=== PATIENT | female | born 1975 | race Two or more races ===

== ENCOUNTER → 2016-07-17 | Outpatient (CLI) | payer BC, OTHER ==
--- NOTE | 2016-07-17 08:47 | MR ---
EXAMINATION TYPE: MR lumbar spine wo con DATE OF EXAM: 07/17/2016 7:23 AM COMPARISON: 10/27/2014 HISTORY: 40 year-old female with low back pain TECHNIQUE: Multiplanar, multisequence images of the lumbar spine were acquired. Findings: Vertebral body heights are preserved and alignment is maintained. Conus medullaris is normal. No suspicious bone marrow replacement. There is a component of mild congenital spinal canal narrowing in the mid to lower lumbar spine with AP canal dimension of 1.1 cm. However, there is redemonstrated degenerative disc disease primarily centered at L5-S1 Graham mild disc height loss progressed from prior exam. A large right paracentral disc extrusion has also increased in size not contributing to a moderate to severe spinal canal stenosis and impingement of the james ing right S1 nerve root. Moderate right L5-S1 neural foraminal stenosis is unchanged. There is new central, left paracentral disc extrusion with superior migration of disc material, sagit peterson image 6 and axial image 5. This appears to impinge the traversing left S1 nerve root canal. No prevertebral or paravertebral soft tissue abnormality. IMPRESSION: 1. Redemonstrated degenerative disc disease primarily at L5-S1. Degenerative changes have progressed now with enlarging right paracentral disc extrusion and increasing impingement of the traversing righ t S1 nerve root and similar moderate right neural foraminal stenosis. 2. Progressive disc bulge and a new extruded left paracentral disc fragment at this level as well. Th is appears to impinge the traversing left S1 nerve root now as well. 3. These progressive changes cause moderate to severe narrowing of the spinal canal at the L5-S1 leve l. 4. Background of mild congenital canal stenosis.
== END | disposition home or self-care (01) ==
LOC: RADMRIMAIN 06:44
PROVIDERS: ATTEND Orthopaedic Surgery Orthopaedic Surgery of the Spine
DX: M48.06 Spinal stenosis, lumbar region (principal); M99.73 Connective tissue and disc stenosis of intervertebral foramina of lumbar region; M51.27 Other intervertebral disc displacement, lumbosacral region; M51.37 Other intervertebral disc degeneration, lumbosacral region; M47.816 Spondylosis without myelopathy or radiculopathy, lumbar region
CPT/HCPCS: 72148

== ENCOUNTER → 2018-04-19 | Outpatient (CLI) | payer BC ==
[2018-04-19 09:58] LABS: Basophils # (A) 0.1 k/uL (0-0.2); Basophils % (A) 1 %; Eosinophils % (A) 1 %; HCT 40.2 % (34.0-46.0); HGB 13.1 gm/dL (11.4-16.0); Lymphocytes # (A) 1.7 k/uL (1.0-4.8); Lymphocytes % (A) 28 %; MCH 29.2 pg (25.0-35.0); MCHC 32.7 g/dL (31.0-37.0); MCV 89.4 fL (80.0-100.0); Mean Platelet Volume 7.3; Monocytes # (A) 0.3 k/uL (0-1.0); Monocytes % (A) 6 %; Neutrophils # (A) 3.7 k/uL (1.3-7.7); Neutrophils % (A) 63 %; Platelet Count 325 k/uL (150-450); RBC 4.49 m/uL (3.80-5.40); RDW 13.8 % (11.5-15.5); WBC 5.9 k/uL (3.8-10.6)
== END | disposition home or self-care (01) ==
LOC: LABPAT 09:17
PROVIDERS: ATTEND Obstetrics & Gynecology
DX: Z01.812 Encounter for preprocedural laboratory examination (principal)
CPT/HCPCS: 36415; 85025

== ENCOUNTER 2018-04-26 05:50 | Day surgery (SDC) | payer BC, OTHER ==
[2018-04-23 15:41] VITALS: BMI 33.6
--- NOTE | 2018-04-25 07:33 | P.HPOB ---
History of Present Illness H&P Date: 04/25/18 Chief Complaint: High-grade cervical dysplasia This patient is a pleasant 42-year-old 3 para 2 female who was referred to me by Dr. Manriquez for evaluation of a high-grade Pap smear. Patient had a Pap smear done for her yearly exam and it showed high-grade changes. I did a colposcopy on her on February 22 that showed a negative endocervical curettings but both biopsies at 5 and 12:00 showed moderate to severe dysplasia. Patient and I discussed options for treatment and plan at this time is to do a colposcopy with LEEP excision of this area. Past Medical History Past Medical History: GERD/Reflux, Hypertension Additional Past Medical History / Comment(s): MIGRAINES, ENVIRONMENTAL ALLERGIES , HX OF ANEMIA. History of Any Multi-Drug Resistant Organisms: None Reported Past Surgical History: Back Surgery Additional Past Surgical History / Comment(s): D & C. Past Anesthesia/Blood Transfusion Reactions: No Reported Reaction Past Psychological History: Anxiety Smoking Status: Former smoker Past Alcohol Use History: Occasional Additional Past Alcohol Use History / Comment(s): QUIT SMOKING 10 YEARS AGO. SMOKED APPROX 15 YEARS, 1- 1 & 1/2 PPD Past Drug Use History: None Reported - Past Family History Mother Family Medical History: Cancer Additional Family Medical History / Comment(s): FROM LUNG CANCER Medications and Allergies Home Medications Medication Instructions Recorded Confirmed Type Benicar-Hct (Unknown Dose) 1 tab PO DAILY 04/23/18 History Cetirizine HCl/Pseudoephedrine 1 each PO DAILY PRN 04/23/18 04/23/18 History [Zyrtec-D Tablet] Lexapro (Unknown Dose) 1 dose PO DAILY 04/23/18 History Norgestimate-Ethinyl Estradiol 1 each PO DAILY 04/23/18 04/23/18 History [Tri-Sprintec Tablet] Allergies Allergy/AdvReac Type Severity Reaction Status Date / Time No Known Allergies Allergy Verified 04/23/18 15:29 Exam - OBG Physical Exam Abdomen: bowel sounds normal, no diffuse tenderness, no bruit present, no guarding noted, no hepatomegaly, no splenomegaly, no mass Vulva: both: normal Vagina: normal moisture, no discharge Cervix: no lesion (Patient has acetowhite changes most markedly at 5 and 12:00) , no discharge Results Cervical biopsy done on February 22 showed high-grade cervical dysplasia (LANIE-2 to LANIE-3). Assessment and Plan Assessment: This is a pleasant 42-year-old 3 para 2 female with high-grade ectocervical dysplasia of the cervix. Plan is colposcopy with LEEP excision of the ectocervix and endocervix. Patient and I have discussed the surgery in detail including the risks of the surgery which include infection, bleeding, possible cervical incompetence in future loss. All the patient's questions are answered and a written consent is obtained. (1) High grade squamous intraepithelial cervical dysplasia Status: Acute Code(s): R87.613 - HIGH GRADE INTREPITH LESION CYTO SMR CRVX ( HGSIL) SNOMED Code(s): 875676416
[~2018-04-26 05:50] MED LIST: DEXAMETHASONE SOD PHOSPHATE 10 MG/ML 1 ML VIAL IV ONE; LACTATED RINGERS 1,000 ML IV SCH; LIDOCAINE 1% 20 ML VIAL (10MG/ML) FOR IV START INTRADERMA PRN; MIDAZOLAM 2 MG/2 ML VIAL IV PRN; Pre Op ABX Message 1 EACH MISC MISCELLANE ONE; fentaNYL (PF) 50 MCG/ML 2 ML AMP IV PRN
[2018-04-26] MEDS ORDERED: ONDANSETRON 4 MG/2 ML VIAL IVP ONE (06:21)
[2018-04-26] MEDS ORDERED: LACTATED RINGERS 1,000 ML IV ONE ×3 (06:21→07:31)
[2018-04-26] MEDS ORDERED: fentaNYL (PF) 50 MCG/ML 2 ML AMP ONE (06:53)
[2018-04-26] MEDS ORDERED: MIDAZOLAM 2 MG/2 ML VIAL ONE (06:53)
[2018-04-26] MEDS ORDERED: LIDOCAINE 1% INJ 10MG/ML (20 ML MDV) ONE (06:53)
[2018-04-26] MEDS ORDERED: PROPOFOL 10 MG/ML 20 ML VIAL IV ONE (06:53)
[2018-04-26] MEDS ORDERED: KETOROLAC 30 MG/ML 1 ML VIAL ONE (06:53)
[2018-04-26] MEDS ORDERED: FERRIC SUBSULFATE (MONSELS) JAR TOPICAL ONE (07:07)
--- NOTE | 2018-04-26 07:31 | P.OP ---
Date of Procedure: 04/26/18 Preoperative Diagnosis: High-grade ectocervical dysplasia Postoperative Diagnosis: Same Procedure(s) Performed: Colposcopy with LEEP excision of the ectocervix endocervix Anesthesia: other (LMA) Surgeon: Jean Mart Estimated Blood Loss (ml): 50 Urine output (ml): 50 Pathology: other (Ectocervix and endocervix) Condition: stable Disposition: PACU Indications for Procedure: Please see dictated H&P for intimate details of this patient's admission. Brief summary this is a pleasant 42-year-old multiparous patient who is referred to me for evaluation of a high-grade abnormal Pap smear. Patient a colposcopy performed which showed high-grade cervical dysplasia at 5 and 12:00. Patient I discussed options for treatment she now presents for LEEP excision of this area. Patient understands this surgery and risks including risks of infection, bleeding, possible cervical incompetence if she were to have another baby. All the patient's questions are answered written consent is obtained. Operative Findings: This patient had a large nonstaining Lugol's area of the ectocervix consistent with the office findings of high-grade dysplasia Description of Procedure: This patient is taken to the operating room where she is laid in the supine position. She subsequently goes general anesthesia without incident. With an adequate level of anesthesia she's placed in the dorsal lithotomy position. She has a vaginal perineal prep and drape. This time I drain her bladder for 50 mL of clear urine. The laser's speculum was placed into the vagina. Colposcopy is then performed in the area of abnormality is demarcated. This is a quite large area that encompasses a lot of the ectocervix. Using a large LEEP loop set at 60/70 cutting cautery setting I removed the ectocervical lesion in 3 passes. With this done I then take a small LEEP loop and remove the endocervical portion. These are sent separately to pathology. Using Bovie cautery I then cauterized the entire ectocervical margin and ectocervical bed. Excellent hemostasis is noted. Monsel solution is applied for added hemostasis at this time. This time the procedure is ended. The counts are correct 3. There are no complications. Patient is awakened from anesthesia and taken the recovery room in satisfactory condition.
[2018-04-26 07:38] VITALS: RESP 16; TEMP 98.2
[2018-04-26 08:34] VITALS: BP 131/88; PULSE 71
== END 2018-04-26 08:43 | disposition home or self-care (01) ==
LOC: OR 05:50
PROVIDERS: ATTEND Obstetrics & Gynecology
DX: D06.1 Carcinoma in situ of exocervix (principal); K21.9 Gastro-esophageal reflux disease without esophagitis; I10 Essential (primary) hypertension; Z87.891 Personal history of nicotine dependence; F41.9 Anxiety disorder, unspecified; Z80.1 Family history of malignant neoplasm of trachea, bronchus and lung; Z79.3 Long term (current) use of hormonal contraceptives; Z79.899 Other long term (current) drug therapy
CPT/HCPCS: 81025; 88305; 88307; 57460; 58110; J2250; J1100; J2405; J2001; J3010; J1885; J2704

== ENCOUNTER → 2021-09-15 | Outpatient (CLI) | payer BC ==
--- NOTE | 2021-09-15 10:37 | MR ---
EXAMINATION TYPE: MR lumbar spine wo con DATE OF EXAM: 09/15/2021 COMPARISON: 07/17/2016 HISTORY: Low back pain for 3 months. History of surgery. TECHNIQUE: T1 and T2 axial and sagittal images of the lumbar spine are submitted. FINDINGS: Exam is limited by motion artifact. There is no abnormal signal seen within the visualized spinal cord or paraspinal soft tissues. Incidental note made of degenerative disc disease T11-T12 with central disc bulge not included on axi al imaging. Simple appearing right renal cyst noted. At L1-2 there is no evidence of disc herniation or canal stenosis. No foraminal encroachment. At L2-3 there is no evidence of degenerative disc disease, disc herniation or canal stenosis. No fora yolie encroachment At L3-4 there is hypertrophic change of the facets. No disc herniation or canal stenosis. No foramina l encroachment At L4-5 there is facet arthropathy with ligamentum flavum hypertrophy. No disc herniation. Mild circu mferential disc bulging greater laterally to the left mild left-sided foraminal encroachment. Finding s stable. At L5-S1 there is severe degenerative disc disease with grade 1 anterolisthesis and discogenic marrow changes. Moderate to severe bilateral foraminal protrusion greater on the right with facet arthropat hy and ligamentum flavum projecting. Tarlov cyst S2 level. Previously noted large disc herniation not well-seen on today's seen. Hypertrophic changes result in canal stenosis IMPRESSION: 1. Severe degenerative disc disease L5-S1 with grade 1 anterolisthesis, advanced facet arthropathy an d ligamentum flavum hypertrophy contribute to moderate canal stenosis and moderate to severe bilatera l foraminal encroachment. Large disc herniation with extrusion previously noted is not seen on today' s exam and compatible with the patient's history of previous surgery. Correlate clinically to confirm surgery. There remains broad-based disc bulging centrally. 2. There is disc bulging greater laterally at the left L4-L5 with mild left foraminal encroachment si milar to prior exam. 3. T11-T12 there is a central disc bulge not included on axial imaging.
== END | disposition home or self-care (01) ==
LOC: RADMRIMAIN 09:39
PROVIDERS: ATTEND Orthopaedic Surgery
DX: M48.061 Spinal stenosis, lumbar region without neurogenic claudication (principal); M47.819 Spondylosis without myelopathy or radiculopathy, site unspecified; M43.17 Spondylolisthesis, lumbosacral region; M51.37 Other intervertebral disc degeneration, lumbosacral region
CPT/HCPCS: 72148

== ENCOUNTER → 2022-03-06 | Outpatient (CLI) | payer BC | END | disposition home or self-care (01) | LOC: LABPAT 09:00 | PROVIDERS: ATTEND Orthopaedic Surgery | DX: Z53.9 Procedure and treatment not carried out, unspecified reason (principal) ==

== ENCOUNTER 2022-03-14 05:43 | Inpatient (IN) | payer BC ==
[2022-03-07 14:21] VITALS: BMI 38.9
[~2022-03-14 05:43] MED LIST changes: +ACETAMINOPHEN TAB 500 MG TAB PO PRN; -DEXAMETHASONE SOD PHOSPHATE 10 MG/ML 1 ML VIAL IV ONE; +GABAPENTIN 300 MG CAP PO PRN; -LACTATED RINGERS 1,000 ML IV SCH; -LIDOCAINE 1% 20 ML VIAL (10MG/ML) FOR IV START INTRADERMA PRN; -MIDAZOLAM 2 MG/2 ML VIAL IV PRN; +ONDANSETRON 4 MG/2 ML VIAL IVP PRN; -Pre Op ABX Message 1 EACH MISC MISCELLANE ONE; +TRANEXAMIC ACID IN NACL,ISO-OS 1,000 MG in SALINE 1 100ML.BAG IVPB PRN; -fentaNYL (PF) 50 MCG/ML 2 ML AMP IV PRN
[2022-03-14] MEDS ORDERED: DEXAMETHASONE SOD PHOSPHATE 4 MG/ML 1 ML VIAL IV ONE (06:15)
[2022-03-14] MEDS ORDERED: ONDANSETRON 4 MG/2 ML VIAL IVP ONE (06:15)
--- NOTE | 2022-03-14 06:25 | P.HPOR ---
History of Present Illness H&P Date: 03/06/22 .T:Title: [facility] History and Physical Date of :[birth year] Age: 46 year Height: 5'3" Weight: 213 lbs BMI: 37.73 kg/m2 Occupation: Office Work VAS: 3 [employer] MPLAINT: Lumbar pain DOI:Chronic DOS: None recent, hx of laminectomy [place] [address] Gilmore Duration of current treatment regiment: 3 months HISTORY: Xrays No new xrays taken in office Trauma or injury No Work-Related No Pain description aching, increasing . Location posterior diffuse Patient notes that their pain radiates to bilateral lower extremities Activity Modification No Hand Dominance right TREATMENTS COMPLETED: 6 weeks of PT completed? Month and Year of last PT date? 2021 Yes How many sessions? 12 Did it help? No Physician recommended home exercise completed? Duration of HEP course: Current yes Patient has trialed the physician directed home exercise program for without relief of their symptoms. Medications yes List: Motrin, Tylenol, Gabapentin with mild relief. Tizanidine without relief. Alternative interventions Chiropractic: No Massage therapy: No R.I.C.E: yes , without relief Brace: No Injections No RFA: yes , TOMA in 2017, with relief for 1 month SUBJECTIVE: Ms. Preston returns to the office for a pre-operative recheck of their low back pain and planned L5-S1 MIS TLIF. Patient reports her symptoms are about the same as they were at the time of her last appointment. Patient continues to complain of low back pain radiating into the bilateral lower extremities (right side worse than left) with numbness and tingling through the L4-L5 dermatomal distribution. Overall the patient has seen a progressive increase in symptoms since their onset. Ms. Preston symptoms are exacerbated with prolonged standing, ambulation, twisting, and high impact movements like walking up and down stairs, due to this they notes that it is increasingly difficult for Ms. Preston to comp lete many of their daily tasks. Patient is having severe sleep disturbances as well due to their ongoing pain and associated symptoms. Regarding treatments, the patient has previously trialed all abovementioned conservative treatment modalities without relief of her symptoms. Patient denies trialing any other modalities at this time. Otherwise the patient denies any f/c/sob/cp, no incision concerns, no bladder or bowel retention/incontinence, no perineal numbness/tingling, and ambulates independently. History Ms. Preston last returned to the office on 12/21/2021 for a recheck of their low back pain. Of note the patient has seen Katherine Valentin N.P regarding this issue and this is her first time seeing myself regarding this issue. Patient reports a posterior lumbar pain ongoing for several years with no known injury or trauma to indicate an exact onset of their symptoms. Of note the patient does have a history of a laminectomy with microdiskectomy done in 2017. In addition to their lumbar pain, they do report that it radiates into the bilateral lower extremities, associated with somewhat transient numbness and tingling through the legs diffusely. Overall the patient has seen a progressive increase in symptoms since their onset. Ms. Preston symptoms are exacerbated with prolonged standing and ambulation, due to this they notes that it is increasingly difficult for Ms. Preston to complete many of their daily tasks. Patient is having severe sleep disturbances as well due to their ongoing pain and associated symptoms. Regarding treatments, the patient has previously trialed all abovementioned treatment modalities without relief of her symptoms. Patient denies trialing any other modalities at this time. For their symptoms, the patient has been taking Motrin,Tylenol, and Gabapentin with mild relief. She has trialed Tizanidine without relief in the past. Otherwise the patient denies any f/c/sob/cp, no incision concerns, no bladder or bowel retention/incontinence, no perineal numbness/tingling, and ambulates independently. Ms. Preston was last seen on 10/18/2021 regarding low back pain. Patient has completed 6 weeks of physical therapy with no relief. Patient states that she has no changes in her symptoms, continues to have low back pain with numbness and tingling into bilateral lower extremities. Patient did have her MRI of the lumber spine performed on 09/15/2021. At last visit patient was prescribed gabapentin 300 mg and Motrin 800 mg, which she states is providing some relief. She denies any loss of bowel or bladder, perineal or groin numbness or pain. She is ambulatory independently. Today 08/17/2021 Ms. Preston presents to the office for lumbar pain that has worsened over the past 2 months. Patient has had chronic lumbar pain for 7 years, in 2017 she had a laminectomy done by Dr. Gilmore. Patient states that pain increases with prolonged walking, standing, and sitting. She has numbness and tingling that radiates into bilateral lower extremities, she does state that the left side is worse. She is currently taking [id number] Motrin with no relief. She denies any incontinence of bowel or bladder. Patient is independently. The patients' past social, medical, family, surgical history, as well as review of systems, have been reviewed. Please refer to the Neurosurgery History and Physical form that has been scanned in to our electronic medical record system. 16 points review of systems completed and as stated in HPI, all other systems reviewed are negative. Social History: Reviewed, see appropriate section of the chart for details. P3 Social History: Smoking: none P3 Alcohol: currently drinks alcohol P3 Family History: Reviewed, see appropriate section of the chart for details. P2 Past Medical History: Reviewed, see appropriate section of the chart for details. A2Kabotbo Medications: Rx: candesartan 16 mg-hydrochlorothiazide 12.5 mg tablet Ref: 0 Rx: norgestimate-ethinyl estradioL 0.18 mg/0.215mg/0.25mg-35 mcg(28)tablet Ref: 0 Rx: gabapentin 300 mg capsule Ref: 0 Rx: tiZANidine 2 mg tablet Ref: 0 Rx: ibuprofen 800 mg tablet Ref: 0 Rx: TylenoL Ref: 0 PHYSICAL EXAMINATION: General: Awake, alert, appropriate for age, in no acute distress. HEENT: No unusual neck masses around region of lateral neck triangle, thyroid, supraclavicular groove Heart: Regular rate and rhythm, normal S1, S2 and no murmur/gallop. Lungs: Clear to auscultation bilaterally with no use of accessory muscles. Extremities: Skin warm and dry without acute lesions, coloration, temperature, skin intact, no tenderness or erythema Integument: Hairy patches: Absent Dorsal skin dimples: Absent Cafe au lait spots: Absent Surgical incisions: No Palpation: Please see Pain drawing on Intake sheet for further detail. Midline spinal tenderness: No E6 Paralumbar tenderness: YeE6s Parathoracic tenderness: No E6 Buttocks tenderness: No E6 Special findings: No POSTURAL and MUSCULO-SKELETAL EVALUATION: Coronal Balance: NEUTRAL Recumbent testing: Patient is able to lay flat on back Sagittal Balance: NEUTRAL Shoulder Profile: LEVEL Pelvic Girdle: LEVEL Neck ROM: UNRESTRICTED Lumbar ROM: RESTRICTED Shoulder ROM: Symmetrical Hip ROM: Symmetrical Knee ROM: Symmetrical Hands: Normal appearance, symmetrical Feet: Normal appearance, Symmetrical VASCULAR STATUS : LEFT RIGHT Wrist Pulses INTACT INTACT Pedal Pulses (Dors. pedis & post.tibialis) INTACT INTACT Color NORMAL NORMAL Edema Absent Absent NEUROLOGIC EXAMINATION: Mental Status:Awake and alert, fully oriented, with normal attention, concentration and memory, and fluent, appropriate speech. Cranial Nerves: I: Olfactory not tested. II: Visual acuity normal, no visual field deficit noted with confrontation. III,IV: Normal pupillary reflexes & intact extraocular movements without nystagmus. V,: Intact symmetrical facial sensation. VII: Intact symmetrical facial motor movement VIII: Hearing intact. IX,X: Intact gag, swallow, & normal voice. XI: Sternocleidomastoid, trapezius function intact. XII: Tongue midline with normal movements. L'hermitte's Sign: Negative / absent Spurling'Sign: Absent bilaterally. Cubital percussion test: Absent bilaterally. Pulliam-Tinel sign - Carpal region: Absent bilaterally. Straight Leg Raising: Absent bilaterally. Crossed straight leg raise: negative O8 MOTOR EXAM (0-5/5, N/T) STRENGTH RIGHT LEFT Shoulder Abd (not part of the ROSETTE score) 5 5 Elbow Flexors 5 5 Elbow Extensor 5 5 Wrist Dorsiflexors 5 5 Finger Abductor 5 5 Roastmaster 5 5 Hip Flexor (Not part of ROSETTE Motor score) 5 5 Knee Flexor 5 5 Knee Extensor 5 5 Ankle dorsiflexor 4 4 Ankle plantarflexion 4 4 Extensor hallucis 5 5 REFLEXES(0-4/2, NT) RIGHT LEFT Upper Extremities 2 2 Lower Extremities 2 2 Pathological Reflexes RIGHT LEFT Pulliam's Absent Absent Clonus Absent Absent Babinski Absent Absent # Indicates mechanical impairment Muscle appearance:Symmetrical, without signs of atrophy or dystrophy. Sensory system (0-4, N/T) Test type RU CURT RL LL Joint-Position 2 2 2 2 Vibration 2 2 2 2 Pain & LT sense 2 2 2 2 Dermatomal Deficit: None None L4-L5 L4-L5 Gait and Functional Evaluation: Ambulatory aids: Independent Romberg's test: Intact bilaterally Toe heel walk / heel-toe walk intact while maintaining satisfactory balance? yes Squatting/straightening w/o assistance to a min of 60 degree knee flexion? yes Single leg stance: intact Hand and finger dexterity intact bilaterally? yes Disdiadochokinesis examination negative bilaterally? yes RADIOGRAPHIC STUDIES: XRay (5 views) taken on 08/17/21 obtained at [facility] of Lumbar Spine and Pelvis: images demonstrate a grade 1 and grade 2 L5-S1 spondylolisthesis with exuberant facet hypertrophy as well as part elongation. There is near complete collapse of the L5-S1 disc. There are no fractures or other dislocations noted. There is some anterior bridging osteophyte that is starting to form over L5-S1. The remaining disks and vertebral body heights are of normal size and shape. Overall alignment is otherwise maintained despite the slip. AP pelvis demonstrates a congruent level pelvis without fracture MRI scan from obtained at [facility] of Lumbar Spine: IMPRESSION: 1. Severe degenerative disc disease L5-S1 with grade 1-2 anterolisthesis, advanced facet arthropathy and ligamentum flavum hypertrophy contribute to moderate canal stenosis and moderate to severe bilateral foraminal encroachment. Large disc herniation with extrusion previously noted is not seen on today's exam and compatible with the patient's history of previous surgery. There are Modic endplate changes type II L5-S1 which are noted as well.. 2. There is disc bulging greater laterally at the left L4-L5 with mild left foraminal encroachment similar to prior exam. 3. T11-T12 there is a central disc bulge not included on axial imaging. IMPR ESSION: It was my pleasure to have seen and examined Heaven. I reviewed the patient's clinical syndrome, physical findings, and imaging studies during the appointment today. It is my impression that the patient has a diagnosis of. 1. L5-S1 spondylosis 2. L5-S1 grade 1 spondylolisthesis 3. Bilateral lower extremity radiculopathy 4. Mechanical low back pain I outlined the natural course history without intervention and various interventional options. PLAN: Based on my findings I suggest the following course of action: - Patient given a script for a Zynex LSO brace that she will wear post- operatively -Advised patient to continue with supplements, health maintenance, and home exercise programs. Patient expressed understanding and will continue with these modalities. -I discussed treatment options with the patient, including operative and non- operative options, and they have elected to proceed with the following surgical procedure: lumbar (L5-S1) MIS Transforaminal Lumbar Interbody Fusion The indications, risks, benefits, and alternatives to surgery were discussed with the patient at length. Specifically (but not limited to) the risks of infection, stiffness, recurrence of symptoms, need for revision surgery, local numbness, neurovascular injury, and blood clots were discussed. The patient's questions were answered. The decision to proceed was made. Consent will be obtained for the procedure. Spine Surgery Risk Review Ms. Preston is presenting for evaluation of low back pain. It was my pleasure to have seen and examined Ms. Preston. In our visit today we have had a chance to go over subjective complaints, physical examination findings and treatments including the natural course history without intervention and various interventional options. The patients imaging demonstrates: XRay (5 views) taken on 08/17/21 obtained at [facility] of Lumbar Spine and Pelvis: images demonstrate a grade 1 and grade 2 L5-S1 spondylolisthesis with exuberant facet hypertrophy as well as part elongation. There is near complete collapse of the L5-S1 disc. There are no fractures or other dislocations noted. There is some anterior bridging osteophyte that is starting to form over L5-S1. The remaining disks and vertebral body heights are of normal size and shape. Overall alignment is otherwise maintained despite the slip. AP pelvis demonstrates a congruent level pelvis without fracture MRI scan from obtained at [facility] of Lumbar Spine: IMPRESSION: 1. Severe degenerative disc disease L5-S1 with grade 1-2 anterolisthesis, advanced facet arthropathy and ligamentum flavum hypertrophy contribute to moderate canal stenosis and moderate to severe bilateral foraminal encroachment. Large disc herniation with extrusion previously noted is not seen on today's exam and compatible with the patient's history of previous surgery. There are Modic endplate changes type II L5-S1 which are noted as well.. 2. There is disc bulging greater laterally at the left L4-L5 with mild left foraminal encroachment similar to prior exam. 3. T11-T12 there is a central disc bulge not included on axial imaging. On physical exam, Ms. Preston demonstrates severely restricted lumbar ROM with bilateral lower extremity radiculopathy. Patient does also demonstrate bilateral L4-L5 dermatomal deficits as well. I have explained to the patient that as their condition progresses it will cause further neurological deficits and eventual paralysis. Based on the patients imaging, physical exam, and the rapid progression and disabling nature of their symptoms, at this time I recommend surgery in the form or a: lumbar (L5-S1) MIS Transforaminal Lumbar Interbody Fusion. I discussed the risk and benefits of this procedure at length with Ms. Preston. The patient agreed to considered pursuing the procedure abovementioned. Prior to surgery, she should follow up with her PCP (Cardio, ID, IM etc) for clearance. Questions were invited and answered, and the patient wishes to proceed as outlined below. Currently, I am recommendin.lumbar (L5-S1) MIS Transforaminal Lumbar Interbody Fusion 2.Follow up with PCP for surgical clearance 3.Review of surgical risks and benefits as well as an educational packet on the proposed surgical procedure. Risks: All surgical procedures come with inherent risks, including those related to positioning, anesthesia, intraoperative findings, and postoperative complications. It is important to understand that surgery does not come with any guarantee of a successful outcome as complications and adverse events are always possible. The patient was given a handout in office today discussing the surgical procedure and risks associated with the intervention, both of which were discussed with the patient. These risks include but are not limited to the following: * Experiencing same, different or even worse symptoms in back, neck, arms, or legs compared to before surgery. Requiring further surgery or other forms of treatment presently or at some time in the future at same or other levels of the intended spine surgery. On an extreme but fortunately relatively rare basis severe complication such as blindness, stroke, heart attack, temporary and/or permanent nerve injury, paralysis, coma, or may occur, sometimes without known explanation. Surgical complications may include but are not limited to risk of infection, fluid accumulation in the surgical dissection site, including a seroma or hematoma, that requires additional surgery, wound drainage, bleeding, new numbness or weakness, vision changes/loss, spinal fluid leakage, non-healing and/or infected incision, headaches, difficulty or inability to swallow, hoarseness, hemopneumothorax, pneumothorax, impotence, retrograde ejaculation, vaginal dryness; injury to nerves, spinal cord, blood vessels, lymphatics or other vital organs (i.e., bowel injury, injury to the great vessels); heterotopic bone formation; complications related to the hardware such as screws, rods, cages including misplaced hardware, device failure, instrument ation at the wrong spine level, hardware fracture/breakage, or hardware loosening; vertebral failure of the spinal column above or below the newly placed hardware; retained surgical instrumentations or devices and the need for further surgery. * Medical risks of the planned spine surgery include but are not limited to generalized Infections to the whole body or local areas outside of the s urgical site (sepsis), heart attack, bleeding, anaphylaxis, meningitis, seizure, epilepsy, hearing loss, burn roque, laceration of the head or other areas of the body, bruising, hypersensitivity of the skin, bladder over distension; allergic reaction; shoulder injury related to positioning; fat, blood and air clots to other areas of the body like heart, lungs, brain; failure of internal organs such as lungs, kidneys, liver and excessive bleeding. If blood transfusions are necessary, note that transfusions may cause intolerance reactions such as anaphylaxis or other complex reactions. Despite best efforts, the results of spine surgery might not heal in terms of bone, soft tissues such as skin, fascia, ligaments, and joints. Additionally, in order to achieve best possible results, spine surgery may be carried out beyond the initially planned levels and involve decompression, fusion including insertion of hardware at levels other than the original intended area of surgical interest change some portions of the procedure in order to ensure the best possible outcomes. With spine surgery and spinal fusion, there are different off label uses of instrumentation (devices, implants and hardware) as well as biological substances (bone morphogenic proteins, demineralized bone matrix) as well as using extra bone from allograft sources (i.e. cadaver bone) or autograft (iliac crest bone, ribs, or the spine itself). The patient has been given information about these practices and their inherent risks and benefits. [facility] is an educational center that serves as a training facility for neurosurgical and orthopedic MANAGER NON PROFIT and Nursing students. Physician assistants are medically trained surgical providers who function in the outpatient, inpatient, and operating room setting under the direct supervision of the attending surgeon. [facility] has multiple operating rooms with single and overlapping rooms running daily. They currently function under the required guidelines as produced by the [facility] Finance Committee with regards to the overlapping rooms and will continue to comply with changes to this policy as they occur. The requirements include and are complied with as follows: (1) the critical portions of the overlapping rooms will not occur at the same time, (2) the attending physician will be physically present during the critical portions of the pr ocedure and immediately available during the entire case, and (3) a back-up attending is designated should the primary attending not be immediately available. The patient has had a chance to review all the listed information, has been given print outs detailing this information, and has had all his/her questions answered to their satisfaction. It was my pleasure to have seen and examined Ms. Preston. In our visit today we have had a chance to go over my understanding of our patient's current condition, the natural course history without intervention and various interventional options. Questions were invited and answered, and the patient wishes to proceed as outlined above. I have seen and examined the patient for 25 minutes and we have spent more than 50% of the time in repeat and detailed counseling about the patient's condition, its natural course history with out and as much as can be predicted with surgery and re-review of various surgical treatment options. In conclusion, Ms. Preston requested we proceed with the above suggested surgery and are willing to accept risks and limitations of the suggested surgery as nature of the disease process and our best attempts at treatment for the condition. Thank you again for allowing us to be part of your patient's care. Please don't hesitate to contact me if you have any further questions. Follow- up: 2 weeks post op Patient Education: (Informational booklet, instructions, etc) given at today's appointment: Yes .ED:Patient Education: Y Plan at next visit: pre-operative review Medications Reviewed: YES In our visit today Ms. Preston and I have had a chance to go over my understanding of the patient's current condition, the natural course history without intervention and various interventional options. Questions were invited and answered, and the patient wishes to proceed as outlined above. I will be sure to keep you updated afterMs. Preston returns here for further follow-up. Thank you again for your referral. Please do not hesitate to contact me if you have any further questions. Signed and authenticated by: Niranjan [facility] Minimally Invasive Spine Surgery [address] [facility], [address] [address] This message is confidential, intended only for the named recipient(s) and may contain information that is privileged or exempt from disclosure under applicable law. If you are not the intended recipient(s), you are notified that the dissemination, distribution or copying of this information is strictly prohibited. If you received this message in error, please notify the sender then delete this message. Patient verbalizes understanding of the information discussed. Past Medical History Past Medical History: Hypertension Additional Past Medical History / Comment(s): back pain-"slipped disc" History of Any Multi-Drug Resistant Organisms: None Reported Additional Past Surgical History / Comment(s): LEEP procedure,discetomy Past Anesthesia/Blood Transfusion Reactions: No Reported Reaction, Motion Sickness Additional Past Anesthesia/Blood Transfusion Reaction / Comment(s): no hx blood transfusion Smoking Status: Former smoker - Past Family History Mother Family Medical History: Cancer Additional Family Medical History / Comment(s): lung Medications and Allergies Home Medications Medication Instructions Recorded Confirmed Type Cetirizine HCl/Pseudoephedrine 1 each PO DAILY PRN 04/23/18 03/07/22 History [Zyrtec-D Tablet] Ibuprofen [Motrin] 600 mg PO Q6HR PRN #40 tab 04/26/18 03/07/22 Rx Acetaminophen [Tylenol Extra 500 - 1,000 mg PO Q6H PRN 03/07/22 03/07/22 History Strength] Candesartan/Hydrochlorothiazid 1 each PO QAM 03/07/22 03/07/22 History [Candesartan/Hydrochlorothiazid 16-12.5 mg] Tri Femynor Birthcontrol 1 tab PO QAM 03/07/22 03/07/22 History Allergies Allergy/AdvReac Type Severity Reaction Status Date / Time chick peas Allergy facial Uncoded 03/07/22 14:10 swelling Physical Examination Osteopathic Statement: *. No significant issues noted on an osteopathic structural exam other than those noted in the History and Physical/Consult.
[2022-03-14] MEDS: LACTATED RINGERS 1,000 ML IV SCH (07:02)
[2022-03-14] MEDS ORDERED: NEOSTIGMINE 1 MG/ML 10 ML VIAL ONE (07:25)
[2022-03-14] MEDS ORDERED: GLYCOPYRROLATE 0.2 MG/ML 2 ML VIAL ONE (07:25)
[2022-03-14] MEDS ORDERED: fentaNYL (PF) 50 MCG/ML 2 ML AMP ONE (07:25)
[2022-03-14] MEDS ORDERED: ROCURONIUM 10 MG/ML (5 ML VIAL) IV ONE (07:25)
[2022-03-14] MEDS ORDERED: LIDOCAINE 2% INJ 20 MG/ML (2 ML VIAL) ONE (07:25)
[2022-03-14] MEDS ORDERED: PROPOFOL 10 MG/ML 20 ML VIAL IV ONE (07:25)
[2022-03-14] MEDS ORDERED: SUCCINYLCHOLINE CHLORIDE 200 MG/10 ML VIAL IV ONE (07:25)
[2022-03-14] MEDS ORDERED: MIDAZOLAM 2 MG/2 ML VIAL ONE (07:25)
[2022-03-14] MEDS ORDERED: THROMBIN (BOVINE) 5,000 UNIT VIAL TOPICAL ONE (07:30)
[2022-03-14] MEDS ORDERED: GELATIN SPONGE,ABSORB (LARGE) 1 EACH SPONGE TOPICAL ONE (07:30)
--- NOTE | 2022-03-14 10:42 | FL ---
EXAMINATION TYPE: FL guidance operating room, XR lumbar spine 2 or 3V DATE OF EXAM: 03/14/2022 CLINICAL HISTORY: Low back pain. TECHNIQUE: Fluoroscopy. Intraoperative 2 views lumbar spine. COMPARISON: MRI lumbar spine September 15, 2021. FINDINGS: Fluoroscopic guidance was provided during lumbar fusion procedure performed by Dr. Goodman joiner. A total of 3 minutes 19 seconds of fluoroscopic time was utilized during the procedure and 4 sp ot images was acquired. Intraoperative images obtained show posterior intrapedicular rods and screws and metallic disc materi al at L5-S1 level. IMPRESSION: As Above.
[2022-03-14] MEDS: HYDROmorphone 0.5 MG/0.5 ML SYRINGE IVP PRN ×5 (11:02→20:48)
[2022-03-14] MEDS ORDERED: MAGNESIUM HYDROXIDE 2,400 MG/10 ML CUP PO PRN (11:12)
[2022-03-14] MEDS ORDERED: ONDANSETRON 4 MG/2 ML VIAL IVP PRN (11:12)
[2022-03-14] MEDS ORDERED: SENNOSIDES-DOCUSATE SODIUM 1 EACH TAB PO PRN (11:12)
[2022-03-14] MEDS ORDERED: MAG HYDROX/AL HYDROX/SIMETH 30 ML CUP PO PRN (11:12)
[2022-03-14] MEDS ORDERED: HYDROcodone/APAP 7.5-325MG 1 EACH TAB PO PRN (11:14)
--- NOTE | 2022-03-14 14:00 | P.PN ---
Progress Note - Text Progress Note Date: 03/14/22 Pt s/e in PACU. She is doing better now with pain control. NO pain in legs. Some mild back pain. follows all commands. Moving all 4 ext with good strengths. No sob/cp. States feels OK. She will go to floor when awake and stable per PACU staff and anesthesia.
[2022-03-14] MEDS: HYDROcodone/APAP 10-325MG 1 EACH TAB PO PRN ×2 (16:48→23:01)
--- NOTE | 2022-03-14 17:59 | CT ---
EXAMINATION TYPE: CT lumbar spine wo con CT DLP: 1455 mGycm, Automated exposure control for dose reduction was used. DATE OF EXAM: 03/14/2022 5:41 PM COMPARISON: MR lumbar spine 09/15/2021. CLINICAL INDICATION:Female, 46 years old with history of s/p lumbar fusion, Lumbar fusion post OP TECHNIQUE: Multiple axial images were obtained from the midportion of T11 through the sacroiliac edita nts. Soft tissue and bone windows in coronal and sagittal planes were obtained and reviewed. 3-D ref ormats of the bones were created on a separate workstation and submitted for review. Contrast used: none. Oral contrast used: none. FINDINGS: Alignment: There are 5 lumbar type vertebral bodies within normal alignment. Bone: Postsurgical changes to the lumbar spine including L5 and S1 with hardware in place. Hardware a ppears intact. There is discectomy changes at L5-S1. Subcutaneous gas and other surgical changes note d in the surgical bed. No evidence of acute fracture. Discs: T12-L1: No spinal canal or neural foraminal stenosis is identified. L1-L2: No spinal canal or neural foraminal stenosis is identified. L2-L3: Disc bulging and facet joint arthropathy with mild spinal canal stenosis. There is mild bilate ral neural foraminal stenosis. L3-L4: Disc bulging and facet joint arthropathy with out significant spinal canal stenosis. There is mild bilateral neural foraminal stenosis. L4-L5: Disc bulging and facet joint arthropathy with out significant spinal canal stenosis. There is mild bilateral neural foraminal stenosis. L5-S1: Fixation hardware at this level limits evaluation. The spine appears grossly patent within the limitations of this exam. IMPRESSION: Postsurgical changes to the L5-S1 with hardware in place and in appropriate position. No evidence for fracture.
[2022-03-14] MEDS: GABAPENTIN 300 MG CAP PO SCH (20:47)
[2022-03-14] MEDS: CYCLOBENZAPRINE 10 MG TAB PO PRN (20:48)
[2022-03-15] MEDS: HYDROmorphone 0.5 MG/0.5 ML SYRINGE IVP PRN ×5 (01:29→14:11)
[2022-03-15] MEDS: CYCLOBENZAPRINE 10 MG TAB PO PRN (06:32)
[2022-03-15] MEDS: HYDROcodone/APAP 10-325MG 1 EACH TAB PO PRN ×3 (06:32→20:13)
[2022-03-15] MEDS: GABAPENTIN 300 MG CAP PO SCH ×2 (07:44→20:14)
[2022-03-15] MEDS: LACTATED RINGERS 1,000 ML IV SCH (07:46)
[2022-03-15 08:41] LABS: Basophils # (A) 0.03 X 10*3/uL (0.00-0.10); Basophils % (A) 0.3 %; Eosinophils # (A) 0 X 10*3/uL (0.04-0.35); Eosinophils % (A) 0 %; HCT 34.7 % (37.2-46.3); HGB 11.3 g/dL (12.0-15.0); Immature Grans, Automated 0.4 %; Lymphocytes # (A) 1.62 X 10*3/uL (0.90-5.00); Lymphocytes % (A) 13.8 %; MCH 30.1 pg (27.0-32.0); MCHC 32.6 g/dL (32.0-37.0); MCV 92.3 fL (80.0-97.0); Mean Platelet Volume 10.7 fL (9.5-12.2); Monocytes # (A) 0.82 X 10*3/uL (0.20-1.00); NRBC Per 100 WBC 0 /100 WBCS (0.0-0.0); Neutrophils % (A) 78.5 %; Platelet Count 261 X 10*3/uL (140-440); RBC 3.76 X 10*6/uL (4.10-5.20); RDW 13.1 % (11.5-14.5); WBC 11.72 X 10*3/uL (4.50-10.00)
--- NOTE | 2022-03-15 08:56 | P.PN ---
Subjective Progress Note Date: 03/15/22 Principal diagnosis: Lumbar Spondylosis Patient seen and examined at bedside. Patient was resting in bed. She states that she has not been up since her surgery. Patient does have complaint of constant muscle spasms, medication has been modified. Encouraged patient to work with physical therapy today. She is able to move bilateral lower extremities without difficulty. Surgical dressing is CDI. Patient denies any fever/chills, nausea/vomiting, or chest pain. Objective - Vital Signs Vital signs: Vital Signs Temp 98.3 F 03/15/22 03:55 Pulse 105 H 03/15/22 03:55 Resp 14 03/15/22 03:55 BP 112/72 03/15/22 03:55 Pulse Ox 97 03/15/22 03:55 FiO2 Intake & Output 03/14/22 03/15/22 03/15/22 18:59 06:59 18:59 Intake Total 1730 910 Output Total 875 500 Balance 855 410 Intake: IV 1600 Intake, IV Titration 130 290 Amount Lactated Ringers 1,000 ml 80 240 @ 20 mls/hr IV .Q24H KASSIE Rx#:[id number] ceFAZolin 2 gm In Sodium 50 50 Chloride 0.9% 50 ml @ 100 mls/hr IVPB Q8HR [facility]E Rx# :[id number] Oral 620 Output: Urine 825 500 Estimated Blood Loss 50 Other: Voiding Method Indwelling Catheter - Exam Physical Examination General: The patient is awake and alert, in no acute distress Skin: Skin is warm and dry with no obvious rashes or lesions. Hairy patches absent, no dorsal skin dimples, no cafe au lait spots. Surgical incision to lumbar region, dressing CDI. Eye: Pupils are equal, round and reactive to light, extra-ocular movements are intact; there is normal conjunctiva bilaterally. Neck: The neck is supple, there is no tenderness and ROM intact. Cardiovascular: There is a regular rate and rhythm. No murmur, rub or gallop is appreciated. Respiratory: Lungs are clear to auscultation, respirations are non-labored, breath sounds are equal. Gastrointestinal: Soft, non-distended, non-tender abdomen. Back: There is no tenderness to palpation in the midline, paralumbar, parathoracic or buttocks region. There is no obvious deformity . Musculoskeletal: ROM limited secondary to pain and stiffness from surgical procedure. Muscle strength in all major muscle groups of bilateral upper extremities 5/5, bilateral lower extremities 5/5. Neurological: CN 2-12 intact. There are no obvious motor or sensory deficits. Movement and coordination equal and intact. Sensory exam to light touch intact C5-T1 and intact from L2-S1. Reflexes 2/4 in bilateral upper and lower extremities. Negative Hoffmans, babinski, and clonus signs. Psychiatric: Cooperative, appropriate mood & affect, normal judgment. - Labs CBC & Chem 7: 03/15/22 03:27 Assessment and Plan Assessment: Postop day 1: Minimally invasive TLIF L5-S1 Plan: Plan: -Appreciate identity management consultant and team management. -Activity: Ambulate QID, OOB all meals, up and about, limit lifting bending twisting to less than 5 lbs. Use walker or cane if needed for stability. -Daily PT/OT, increase ambulation strength and balance. -Pain control: Adequate at this time -Meds: reviewed -GI ppx: senna, Miralax -DVT PPX: OK to restart Heparin tonight -Hygiene: Shower today. Maintain dressing clean and dry. Meticulous cleaning after BMs away from the incision site -Encourage IS 10x/hr -Dispo: Anticipate discharge home tomorrow with homecare. *I reviewed and discussed this case with my attending Dr. Barlow, whom has reviewed this chart and films and is in agreement with assessment and plan of care as outlined above. I have personally seen and examined the patient, performed the documentation and the assessment and plan as written. Number of minutes spent on the visit: 20m
[2022-03-15 09:01] LABS: African American GFR (CKD) 126.7 (60.0-200.0); BUN/Creat Ratio 15.5 Ratio (12.00-20.00); Blood Urea Nitrogen 9.3 mg/dL (9.0-27.0); Calcium 9.1 mg/dL (8.7-10.3); Non-African American GFR(CKD) 109.3 (60.0-200.0)
[2022-03-15] MEDS ORDERED: [UNRECOGNIZED DRUG - OTHER] PO SCH (09:15)
[2022-03-15] MEDS: LOSARTAN 50 MG TAB PO SCH (10:14)
[2022-03-15] MEDS: hydroCHLOROthiazide 12.5 MG CAP PO SCH (10:14)
[2022-03-15] MEDS: CYCLOBENZAPRINE 10 MG TAB PO SCH ×3 (10:15→21:32)
--- NOTE | 2022-03-15 13:40 | P.CONS ---
History of Present Illness - Reason for Consult Consult date: 03/15/22 Requesting physician: Niranjan Barlow - Chief Complaint Radiating low back pain, S/P TLIF L5-S1 - History of Present Illness This is a 46-year-old female with past medical history of hypertension, morbid obesity, BMI 40, anxiety, depression, former nicotine dependence, degenerative disc disease L5 to S1 with spondylolithiasis with bilateral lower extremity radiculopathy, status post transforaminal lumbar interbody fusion. Reports tuttle has been discontinued this morning. Moving all extremities, reports has not yet been out of bed. PT pending. Positive pain/ muscle spasms. Passing flatus. Afebrile, WBC 11.72. Renal function stable. Denies chest pain, palpitations or shortness of breath. Maintaining O2 sats in the high 90s on 2 L nasal cannula. Review of Systems ROS Statement: Those systems with pertinent positive or pertinent negative responses have been documented in the HPI. ROS Other: All systems not noted in ROS Statement are negative. Past Medical History Past Medical History: Hypertension Additional Past Medical History / Comment(s): back pain-"slipped disc" History of Any Multi-Drug Resistant Organisms: None Reported Additional Past Surgical History / Comment(s): LEEP procedure,discetomy Past Anesthesia/Blood Transfusion Reactions: No Reported Reaction, Motion Sickness Additional Past Anesthesia/Blood Transfusion Reaction / Comm: no hx blood transfusion Smoking Status: Former smoker - Past Family History Mother Family Medical History: Cancer Additional Family Medical History / Comment(s): lung Medications and Allergies Home Medications Medication Instructions Recorded Confirmed Type Cetirizine HCl/Pseudoephedrine 1 each PO DAILY PRN 04/23/18 03/07/22 History [Zyrtec-D Tablet] Ibuprofen [Motrin] 600 mg PO Q6HR PRN #40 tab 04/26/18 03/07/22 Rx Acetaminophen [Tylenol Extra 500 - 1,000 mg PO Q6H PRN 03/07/22 03/07/22 History Strength] Candesartan/Hydrochlorothiazid 1 each PO QAM 03/07/22 03/14/22 History [Candesartan/Hydrochlorothiazid 16-12.5 mg] Tri Femynor Birthcontrol 1 tab PO QAM 03/07/22 03/07/22 History traMADol HCL 50 mg PO PRN 03/14/22 History Allergies Allergy/AdvReac Type Severity Reaction Status Date / Time chick peas Allergy facial Uncoded 03/14/22 06:27 swelling Physical Exam Vitals: Vital Signs Temp Pulse Pulse Resp BP Pulse Ox 03/15/22 11:36 98.3 F 97 17 105/71 93 L 03/15/22 03:55 98.3 F 105 H 14 112/72 97 03/14/22 19:26 98.2 F 91 15 112/75 98 03/14/22 14:26 97.7 F 83 17 129/83 99 03/14/22 13:30 93 16 134/77 98 03/14/22 13:15 86 16 132/76 Intake and Output 03/14/22 03/15/22 03/15/22 22:59 06:59 14:59 Intake Total 270 770 Output Total 325 500 Balance -55 270 Intake: Intake, IV Titration 130 290 Amount Lactated Ringers 1,000 ml 80 240 @ 20 mls/hr IV .Q24H [facility]E Rx#:[id number] ceFAZolin 2 gm In Sodium 50 50 Chloride 0.9% 50 ml @ 100 mls/hr IVPB Q8HR [facility] Rx# :[id number] Oral 140 480 Output: Urine 325 500 Other: Voiding Method Indwelling Catheter # Voids 1 PHYSICAL EXAM: VITAL SIGNS: [As above] GENERAL: HEENT: Conjunctivae normal. eyes normal. NECK: No JVD. No thyroid enlargement. No LNs CARDIOVASCULAR: S1, S2 regular.No murmur RESPIRATION: Breath sounds diminished in the bases. No rhonchi or crackles. No bronchial breathing. ABDOMEN: Soft, nondistended, nontender.No guarding. no masses palpable. Positive bowel sounds heard. LEGS: No edema. no swelling. PSYCHIATRY: Alert and oriented X3, mood and affect normal. NERVOUS SYSTEM: Cranial N 2-12 grossly normal.Moves all 4 limbs.No focal deficits. Strength and sensation grossly intact. Skin: Warm and dry, no rash. Results CBC & Chem 7: 03/15/22 03:27 03/15/22 03:27 Labs: Abnormal Lab Results - Last 24 Hours (Table) 03/15/22 03/15/22 Range/Units 03:27 03:27 WBC 11.72 H (4.50-10.00) X 10*3/uL RBC 3.76 L (4.10-5.20) X 10*6/uL Hgb 11.3 L (12.0-15.0) g/dL Hct 34.7 L (37.2-46.3) % Immature Gran # 0.05 H (0.00-0.04) X 10*3/uL Neutrophils # 9.20 H (1.80-7.70) X 10*3/uL Eosinophils # 0 L (0.04-0.35) X 10*3/uL Glucose 123 H (70-110) mg/dL Assessment and Plan Assessment: Degenerative disc disease L5 to S1 with spondylolithiasis with bilateral lower extremity radiculopathy, status post transforaminal lumbar interbody fusion L5- S1. Morbid obesity, BMI 40 Hypertension Anxiety, history of Depression, history of Former nicotine dependence Plan: Continue on current medication regime ,monitoring and symptomatic treatment. Aggressive pulmonary toileting with incentive spirometer reinforced. Maintaining O2 sats in the high 90s on 2 L nasal cannula, wean off O2 as tolerated. PT pending. Pain management,DVT prophylaxis as per primary. Discharge planning in progress for tomorrow as per orthopedic-spine surgery. Follow-up with PCP in one week. Thank you for the consult. The impression and plan of care has been dictated as directed. : I performed a history and examination of this patient, discussed the same with the dictator. I agree with the dictator's note ,documented as a scribe. Any additional findings or plans will be noted.
--- NOTE | 2022-03-15 18:33 | P.CONS ---
History of Present Illness - Reason for Consult Consult date: 03/15/22 Medical Management Requesting physician: Niranjan Barlow - History of Present Illness History of Presenting Illness: Patient is a very pleasant 46-year-old female with a past medical history of hypertension, anxiety and depression, and degenerative disc with chronic pain. She is currently admitted under orthopedic surgery team status post L5 through S1 transforaminal lumbar interbody fusion. We have been consulted for medical management throughout patient's hospitalization. Upon evaluation at bedside this morning patient reports she is having back pain/discomfort but does report improvement of numbness and tingling to her lower extremities that she was experiencing prior to surgery. Patient currently reading back pain 5 out of 10 at time of assessment. Frederick catheter was discontinued this morning. Patient reports back pain remains uncontrolled and therefore she has been unable to get out of bed as recommended by orthopedic surgeon. Patient encouraged to get out of bed at this time with assistance from nursing staff as prolonged immobility can prolong recovery time. Patient encouraged to at least get up to chair with meals and 2 restroom. Patient denies having any headache, lightheadedness, dizziness, chest pain, palpitations, shortness of breath, or experiencing any postoperative nausea or vomiting. Vital signs stable and 2 L Oxygen discontinued at this time, as O2 sat 97% on 2 L. Patient educated on the importance of incentive spirometry use. Morning labs reviewed and stable. Postoperative hemoglobin 11.3 and CBC also revealing mild gross cytosis 11.72. Review of systems: Pertinent positives and negatives as discussed in HPI, a complete review of systems was performed and all other systems are negative. Physical exam: Vital signs reviewed and stable. General: Nontoxic, no distress and appears stated age. Derm: Skin warm and dry, normal coloration for ethnicity. Head: Atraumatic, normocephalic and symmetric. Eyes: EOMs intact, no lid lag, and anicteric sclera Mouth: no lip lesions, mucus membranes moist Cardiovascular: regular rate and rhythm with normal S1S2, no murmur, positive posterior tibial pulses bilaterally, and cap refill < 2 seconds. Lungs: Respirations even, regular, and unlabored on room air. Lungs CTA bilaterally, no rhonchi, no rales, no wheezing, and no accessory muscle usage. Abdominal: soft, nontender to palpation, no guarding, no appreciable organomegaly Ext: ROM intact. No gross muscle atrophy, no edema, no contractures. Movement and sensation intact in all 4 extremities. Neuro: Speech clear, face symmetrical and CN II-XII grossly intact with no noted focal neuro deficits Psych: Alert and oriented to person, place, time, and situation. Appropriate and pleasant affect. Assessment and Plan of Care: Status post L5 through S1 transforaminal lumbar interbody fusion Management per primary admitting orthospine surgical team including pain management, DVT prophylaxis, weightbearing, and PT/OT. Encourage use of incentive spirometry. Encourage increased ambulation. DVT prophylaxis currently with LEODAN robles and Ike Postoperative blood loss anemia, expected finding and stable Hemoglobin 11.3 with preoperative hemoglobin of 12.2. Leukocytosis Reactive no signs of infection. Hypertension Monitor vital signs and continue daily medication regimen with hydrochlorothiazide and losartan. Thank you for allowing us to participate in the care of this pleasant patient. Do not hesitate to contact us with questions. Someone can be reached from the [facility] hospitalist group all hours of the day at [phone] or via [employer]. Past Medical History Past Medical History: Hypertension Additional Past Medical History / Comment(s): back pain-"slipped disc" History of Any Multi-Drug Resistant Organisms: None Reported Additional Past Surgical History / Comment(s): LEEP procedure,discetomy Past Anesthesia/Blood Transfusion Reactions: No Reported Reaction, Motion Sickness Additional Past Anesthesia/Blood Transfusion Reaction / Comm: no hx blood transfusion Smoking Status: Former smoker - Past Family History Mother Family Medical History: Cancer Additional Family Medical History / Comment(s): lung Medications and Allergies Home Medications Medication Instructions Recorded Confirmed Type Cetirizine HCl/Pseudoephedrine 1 each PO DAILY PRN 04/23/18 03/07/22 History [Zyrtec-D Tablet] Ibuprofen [Motrin] 600 mg PO Q6HR PRN #40 tab 04/26/18 03/07/22 Rx Acetaminophen [Tylenol Extra 500 - 1,000 mg PO Q6H PRN 03/07/22 03/07/22 History Strength] Candesartan/Hydrochlorothiazid 1 each PO QAM 03/07/22 03/14/22 History [Candesartan/Hydrochlorothiazid 16-12.5 mg] Tri Femynor Birthcontrol 1 tab PO QAM 03/07/22 03/07/22 History traMADol HCL 50 mg PO PRN 03/14/22 History Allergies Allergy/AdvReac Type Severity Reaction Status Date / Time chick peas Allergy facial Uncoded 03/14/22 06:27 swelling Physical Exam Vitals: Vital Signs Temp Pulse Pulse Resp BP Pulse Ox 03/15/22 03:55 98.3 F 105 H 14 112/72 97 03/14/22 19:26 98.2 F 91 15 112/75 98 03/14/22 14:26 97.7 F 83 17 129/83 99 03/14/22 13:30 93 16 134/77 98 03/14/22 13:15 86 16 132/76 03/14/22 13:00 105 H 16 127/72 97 03/14/22 12:45 82 16 135/77 98 03/14/22 12:30 87 16 130/72 97 03/14/22 12:15 84 16 126/69 100 03/14/22 12:00 89 16 125/66 99 03/14/22 11:45 94 16 116/67 98 03/14/22 11:30 95 16 124/72 100 03/14/22 11:15 71 16 121/72 94 L 03/14/22 11:00 80 20 125/71 95 03/14/22 10:45 97.0 F L 78 14 114/68 96 Intake and Output 03/14/22 03/15/22 03/15/22 22:59 06:59 14:59 Intake Total 270 770 Output Total 325 500 Balance -55 270 Intake: Intake, IV Titration 130 290 Amount Lactated Ringers 1,000 ml 80 240 @ 20 mls/hr IV .Q24H [facility]E Rx#:[id number] ceFAZolin 2 gm In Sodium 50 50 Chloride 0.9% 50 ml @ 100 mls/hr IVPB Q8HR [facility] Rx# :[id number] Oral 140 480 Output: Urine 325 500 Other: Voiding Method Indwelling Catheter Results CBC & Chem 7: 03/15/22 03:27 03/15/22 03:27
[2022-03-16] MEDS: LACTATED RINGERS 1,000 ML IV SCH (00:30)
[2022-03-16] MEDS: HYDROcodone/APAP 10-325MG 1 EACH TAB PO PRN (02:00)
[2022-03-16] MEDS: HYDROmorphone 0.5 MG/0.5 ML SYRINGE IVP PRN (03:22)
[2022-03-16 03:55] VITALS: BP 115/77; PULSE 104; RESP 18; TEMP 97.6
[2022-03-16] MEDS ORDERED: HYDROcodone/APAP 10-325MG 1 EACH TAB PO PRN (08:13)
--- NOTE | 2022-03-16 08:38 | P.OP ---
Date of Procedure: 03/14/22 Preoperative Diagnosis: 1. L5-S1 spondylolisthesis G II 2. LE radiculopathy 3. LE weakness 4. Mechanical low back pain Postoperative Diagnosis: 1. L5-S1 spondylolisthesis G II 2. LE radiculopathy 3. LE weakness 4. Mechanical low back pain Procedure(s) Performed: 1. L5-S1 minimally invasive transforaminal lumbar interbody and posteriolateral fusion (04735) 2. Insertion of biomechanical device L4-S1 (91373) 3. Non segmental instrumentation L5-S1 (10609) 4. L5-S1 laminectomy, complete facetectomy and formainotomy for decompression and mobilization (25053) Use of IONM Implants: -Globus Creo screw and blank ND system -Navya [place] 8 mm static cage -MagnatOs -iFactor -Allograft -Autograft Anesthesia: JOJOA Surgeon: Niranjan Barlow Commercial Real Estate Agent #1: Meño Hall (Was present and assisted in all aspects of the case) Estimated Blood Loss (ml): 50 IV fluids (ml): 1,500 Urine output (ml): 250 Pathology: none sent Condition: stable Disposition: PACU Indications for Procedure: Ms. Preston is presenting for evaluation of low back pain. It was my pleasure to have seen and examined Ms. Preston. In our visit today we have had a chance to go over subjective complaints, physical examination findings and treatments including the natural course history without intervention and various interventional options. The patients imaging demonstrates: XRay (5 views) taken on 08/17/21 obtained at [facility] of Lumbar Spine and Pelvis: images demonstrate a grade 1 and grade 2 L5-S1 spondylolisthesis with exuberant facet hypertrophy as well as part elongation. There is near complete collapse of the L5-S1 disc. There are no fractures or other dislocations noted. There is some anterior bridging osteophyte that is starting to form over L5-S1. The remaining disks and vertebral body heights are of normal size and shape. Overall alignment is otherwise maintained despite the slip. AP pelvis demonstrates a congruent level pelvis without fracture MRI scan from obtained at [facility] of Lumbar Spine: IMPRESSION: 1. Severe degenerative disc disease L5-S1 with grade 1-2 anterolisthesis, advanced facet arthropathy and ligamentum flavum hypertrophy contribute to moderate canal stenosis and moderate to severe bilateral foraminal encroachment. Large disc herniation with extrusion previously noted is not seen on today's exam and compatible with the patient's history of previous surgery. There are Modic endplate changes type II L5-S1 which are noted as well.. 2. There is disc bulging greater laterally at the left L4-L5 with mild left foraminal encroachment similar to prior exam. 3. T11-T12 there is a central disc bulge not included on axial imaging. On physical exam, Ms. Preston demonstrates severely restricted lumbar ROM with bilateral lower extremity radiculopathy. Patient does also demonstrate bilateral L4-L5 dermatomal deficits as well. I have explained to the patient that as their condition progresses it will cause further neurological deficits and eventual paralysis. Based on the patients imaging, physical exam, and the rapid progression and disabling nature of their symptoms, at this time I recommend surgery in the form or a: lumbar (L5-S1) MIS Transforaminal Lumbar Interbody Fusion. I discussed the risk and benefits of this procedure at length with Ms. Preston. The patient agreed to considered pursuing the procedure abovementioned. Prior to surgery, she should follow up with her PCP (Cardio, ID, IM etc) for clearance. Questions were invited and answered, and the patient wishes to proceed as outlined below. Currently, I am recommendin.lumbar (L5-S1) MIS Transforaminal Lumbar Interbody Fusion Description of Procedure: The patient was seen and examined in the preoperative area. All preoperative protocols were followed. Informed consent was obtained risks and benefits of the procedure were discussed at length. Risks including bleeding infection damage to the surrounding tissue and risk of reoperation were discussed with the patient. Risk of anesthesia up to and including was a discussed with the patient. These are outlined in the risk review. They were willing to accept these risks and all of the risks of surgery. The patient was given a weight- based dose of antibiotics in the form of [antibiotic]. The patient was seen and evaluated by the anesthesia team who deemed them fit for surgery. The site was marked, the patient was willing to proceed with the procedure. The patient was transferred to the operative suite by the Department of anesthesia. They were then drifted off to sleep by the department anesthesia and GETA was performed. The patient tolerated this well. [Frederick catheter was placed by nursing staff, atraumatically]. Once confirmation of lines and ventilation the patient was transferred to a prone Bjorn table very carefully. All bony prominences including wrists, elbows, axilla, chest, hips, and thighs, and feet were padded very well. Special attention was paid to the genitalia and these were padded accordingly. SCDs were placed on bilateral lower extremities and were connected. Arms were well padded and placed [on arm boards up and out in the 90/90 position]. Once in position, again we confirmed good ventilation capabilities and that lines were running appropriately. The patient's lumbar spine was then exposed. 1010s were placed outlining the incision site. Standard alcohol was used to clean the incision site and allowed to dry. C-arm was used to biomark the patient and confirm level for incision which was marked with a skin marker. Operative briefing was performed with all teams and everyone in agreement to proceed. The patient was then prepped and draped in a normal sterile fashion. Timeout was then performed and all parties were in agreement with the procedure to be performed. Fluoroscopic guidance was then used to place a tubular retractor system in an optimal position on the right-hand side of the patient at L5-S1. Skin incision was made and sequential dilation taken down to the L5-S1 interspace facet joints and pars. Once the tubular retractor system was in a good position AP and lateral imaging confirmed its positioning. The operating microscope was then brought in for visualization. We then performed limited myomectomy which uncovered the facet joints We have performed a L-shaped cut over the lamina and inferior articular facet of L5 using a high-speed bur. This loosened the facet. Osteotome was then used to complete this cut and the facet was removed entirely [along with the pars defect]. We then performed high-speed bur cut transversely over the superior articular facet of S1 osteotome was then used to complete this cut and this opened up the foramen in this area for a pedicle to pedicle decompression. We finished our medial decompression with a 3 Kerrison performing an extra dural decompression of neural elements for complete decompression over the top. The ligamentum flavum was removed as it was compressive in pathology. An [id number] decompression was then performed using Kerrison rongeurs. We then turned our attention back to the foramen the disc was identified the foraminal ligament was removed and the neural elements were mobilized this mobilization allowed for protection the disc space was identified. An osteotome was then used to access the disc space and under lateral fluoroscopic guidance it was advanced until it was centered in A to P view and anterior on the lateral view. We then perform sequential shaving until endplates were clear of any cartilage and disc material had been removed pituitary was used to remove any further free disc material. Down-biting curet was used to scrape endplates and to reach across midline to remove further disc material across midline. We then used blunt trials to trial the size implant desired. A 8 mm trial was placed and it had good fit and showed good lift and reduction. This was removed. We then irrigated the disc space. A mixture of autograft and allograft was then placed anterior within the disc space and impacted using a blunt trial. The cage was then selected and while protecting neural elements the cage was impacted into position under lateral fluoroscopic guidance. It was then expanded until it met the endplates and created good lift and reduction. The cage was tested and it was stable. Cages then back filled with DBM putty. The eviction specialist was removed and the cage was then visualized and tested again it was stable and in good position. AP confirmed good central position. We then irrigated out the area perform meticulous hemostasis inspected the area for any issues and everything was stable. There were no dural tears there was good decompression of the extradural elements. The tubular retractor system was then carefully removed under direct visualization. We then turned our attention to placement of screws at L5 and S1. We then navigated a Jamshidi into the pedicles and vertebral bodies of L5 and [id number] wires were placed in the void of the Jamshidi. The perfect scalpel was used over these wires to create a path. Screws were then measured and placed over these wires using a navigated screwdriver. Once the screw was at the back of the body the wire was pulled and screws were advanced until an optimal position. Once screws were in place they were tested and all tested above 20 mA. With screws in position we measured for a blank once the blank was measured was selected and the blank was placed subfascially bilaterally. We then lock set screws into S1 bilaterally and sequentially reduced set screws into [id number] for spondylolisthesis reduction this was done under lateral fluoroscopic guidance. This showed [good reduction of listhesis as well as] maintenance of height and decompression. Set screws were then final tightened using torque limiter. Tabs were then broken and confirmed to be removed. Final imaging was then taken AP and lateral confirmed good placement of screws as well as cage with good reduction of listhesis in good decompression. Wounds were then copiously irrigated with normal sterile saline. Deep fascia was closed with 0 Vicryl superficial subcu tissue closed with 2-0 Vicryl and skin closed with skin paola. Wound edges approximated very well. The wound was then cleaned and dressed sterilely with operative foam dressings. The patient was transferred back to their hospital bed atraumatically. Patient was then awakened and extubated by the department of anesthesia having tolerated the procedure very well with no complications. They were transferred to the postoperative care unit in stable condition.
[2022-03-16] MEDS: hydroCHLOROthiazide 12.5 MG CAP PO SCH (08:55)
[2022-03-16] MEDS: LOSARTAN 50 MG TAB PO SCH (08:55)
[2022-03-16] MEDS: GABAPENTIN 300 MG CAP PO SCH (08:56)
[2022-03-16] MEDS: CYCLOBENZAPRINE 10 MG TAB PO SCH (08:56)
--- NOTE | 2022-03-16 08:56 | P.PN ---
Subjective Progress Note Date: 03/16/22 Hospital course Patient is a very pleasant 46-year-old female with a past medical history of hypertension, anxiety and depression, and degenerative disc with chronic pain. She is currently admitted under orthopedic surgery team status post L5 through S1 transforaminal lumbar interbody fusion. We have been consulted for medical management throughout patient's hospitalization. Physical exam: Patient is postoperative day 2. She reports doing well this morning. She states she has been ambulatory in room without any difficulties. Patient was slightly tachycardic at 104 bpm this morning but that was upon return from restroom. Patient denies having any headache, lightheadedness, dizziness, chest pain, palpitations, shortness of breath, or experiencing any numbness/tinglin g/weakness in extremities. Patient reports urinating without any difficulties. Medically patient is stable for discharge home at this time once cleared by primary admitting orthospine surgery team. Vital signs reviewed and stable. General: Nontoxic, no distress and appears stated age. Derm: Skin warm and dry, normal coloration for ethnicity. Head: Atraumatic, normocephalic and symmetric. Eyes: EOMs intact, no lid lag, and anicteric sclera Mouth: no lip lesions, mucus membranes moist Cardiovascular: regular rate and rhythm with normal S1S2, no murmur, positive posterior tibial pulses bilaterally, and cap refill < 2 seconds. Lungs: Respirations even, regular, and unlabored on room air. Lungs CTA bilaterally, no rhonchi, no rales, no wheezing, and no accessory muscle usage. Abdominal: soft, nontender to palpation, no guarding, no appreciable organomegaly Ext: ROM intact. No gross muscle atrophy, no edema, no contractures. Movement and sensation intact in all 4 extremities. Neuro: Speech clear, face symmetrical and CN II-XII grossly intact with no noted focal neuro deficits Psych: Alert and oriented to person, place, time, and situation. Appropriate and pleasant affect. Assessment and Plan of Care: Status post L5 through S1 transforaminal lumbar interbody fusion Management per primary admitting orthospine surgical team including pain management, DVT prophylaxis, weightbearing, and PT/OT. Encourage use of incentive spirometry. Encourage increased ambulation. DVT prophylaxis currently with LEODAN hose and SCDs Postoperative blood loss anemia, expected finding and stable Hemoglobin 11.3 with preoperative hemoglobin of 12.2. Leukocytosis Reactive no signs of infection. Hypertension Monitor vital signs and continue daily medication regimen with hydrochloro thiazide and losartan. Thank you for allowing us to participate in the care of this pleasant patient. Do not hesitate to contact us with questions. Someone can be reached from the [facility] hospitalist group all hours of the day at [phone] or via perfect serve. Objective - Vital Signs Vital signs: Vital Signs Temp 97.6 F 03/16/22 03:54 Pulse 104 H 03/16/22 03:54 Resp 18 03/16/22 03:54 BP 115/77 03/16/22 03:54 Pulse Ox 96 03/16/22 03:54 FiO2 Intake & Output 03/15/22 03/16/22 03/16/22 18:59 06:59 18:59 Intake Total 550 Balance 550 Intake: Intake, IV Titration 50 Amount ceFAZolin 2 gm In Sodium 50 Chloride 0.9% 50 ml @ 100 mls/hr IVPB Q8HR [facility] Rx# :[id number] Oral 500 Other: Voiding Method Toilet # Voids 2 2 - Labs CBC & Chem 7: 03/15/22 03:27 03/15/22 03:27 Labs: Abnormal Lab Results - Last 24 Hours (Table) 03/15/22 Range/Units 03:27 Glucose 123 H (70-110) mg/dL
--- NOTE | 2022-03-16 09:10 | P.PN ---
Subjective Progress Note Date: 03/16/22 Principal diagnosis: Lumbar Spondylosis Patient seen and examined at bedside. Patient was resting in bed. She has c/o lower back pain, medications have been reviewed. She has been up and ambulatory within room with the aid of a walker. She is able to move bilateral lower extrem ities without difficulty. Surgical dressing is CDI. She states she is comfortable with going home later this afternoon. Patient denies any fever/chills, nausea/vomiting, or chest pain. Objective - Vital Signs Vital signs: Vital Signs Temp 97.6 F 03/16/22 03:54 Pulse 104 H 03/16/22 03:54 Resp 18 03/16/22 03:54 BP 115/77 03/16/22 03:54 Pulse Ox 96 03/16/22 03:54 FiO2 Intake & Output 03/15/22 03/16/22 03/16/22 18:59 06:59 18:59 Intake Total 550 Balance 550 Intake: Intake, IV Titration 50 Amount ceFAZolin 2 gm In Sodium 50 Chloride 0.9% 50 ml @ 100 mls/hr IVPB Q8HR [facility] Rx# :[id number] Oral 500 Other: Voiding Method Toilet # Voids 2 2 - Exam Physical Examination General: The patient is awake and alert, in no acute distress Skin: Skin is warm and dry with no obvious rashes or lesions. Hairy patches absent, no dorsal skin dimples, no cafe au lait spots. Surgical incision to lumbar region, dressing CDI. Eye: Pupils are equal, round and reactive to light, extra-ocular movements are intact; there is normal conjunctiva bilaterally. Neck: The neck is supple, there is no tenderness and ROM intact. Cardiovascular: There is a regular rate and rhythm. No murmur, rub or gallop is appreciated. Respiratory: Lungs are clear to auscultation, respirations are non-labored, breath sounds are equal. Gastrointestinal: Soft, non-distended, non-tender abdomen. Back: There is no tenderness to palpation in the midline, paralumbar, parathoracic or buttocks region. There is no obvious deformity . Musculoskeletal: ROM limited secondary to pain and stiffness from surgical procedure. Muscle strength in all major muscle groups of bilateral upper extremities 5/5, bilateral lower extremities 5/5. Neurological: CN 2-12 intact. There are no obvious motor or sensory deficits. Movement and coordination equal and intact. Sensory exam to light touch intact C5-T1 and intact from L2-S1. Reflexes 2/4 in bilateral upper and lower ext remities. Negative Hoffmans, babinski, and clonus signs. Psychiatric: Cooperative, appropriate mood & affect, normal judgment. - Labs CBC & Chem 7: 03/15/22 03:27 03/15/22 03:27 Labs: Abnormal Lab Results - Last 24 Hours (Table) 03/15/22 03/15/22 Range/Units 03:27 03:27 WBC 11.72 H (4.50-10.00) X 10*3/uL RBC 3.76 L (4.10-5.20) X 10*6/uL Hgb 11.3 L (12.0-15.0) g/dL Hct 34.7 L (37.2-46.3) % Immature Gran # 0.05 H (0.00-0.04) X 10*3/uL Neutrophils # 9.20 H (1.80-7.70) X 10*3/uL Eosinophils # 0 L (0.04-0.35) X 10*3/uL Glucose 123 H (70-110) mg/dL Assessment and Plan Assessment: Postop day 2: Minimally invasive TLIF L5-S1 Plan: Plan: -Appreciate enterprise resource planning consultant and team management. -Activity: Ambulate QID, OOB all meals, up and about, limit lifting bending twisting to less than 5 lbs. Use walker or cane if needed for stability. -Daily PT/OT, increase ambulation strength and balance. -Pain control: Adequate at this time -Meds: reviewed -GI ppx: senna, Miralax -DVT PPX: Heparin -Hygiene: Shower today. Maintain dressing clean and dry. Meticulous cleaning after BMs away from the incision site -Encourage IS 10x/hr -Dispo: Anticipate discharge home today with homecare. *I reviewed and discussed this case with my attending Dr. Barlow, whom has reviewed this chart and films and is in agreement with assessment and plan of care as outlined above. I have personally seen and examined the patient, performed the documentation and the assessment and plan as written. Number of minutes spent on the visit: 20m
--- NOTE | 2022-03-16 09:11 | P.DS ---
Providers Date of admission: 03/16/22 08:49 Expected date of discharge: 03/16/22 Attending physician: Niranjan Barlow DO Consults: 03/15/22 08:04 Consult Physician Urgent Consulting Provider: Angelic Pang Consult Reason/Comments: medical management Do you want consulting provider notified?: Yes Primary care physician: J[facility] Course: Hospital Course: The patient was evaluated preoperatively and found to have the diagnosis of lumbar spondylosis. They underwent appropriate preoperative care and were willing to undergo the intended procedure. They underwent a successful minimally invasive L5-S1 TLIF, were recovered appropriately and sent to the floor. While on the floor they worked with physical therapy, occupational therapy and nursing to enhance their recovery experience. Their pain was well controlled through their stay and they were started on appropriate medications, DVT ppx modalities, activity and dietary needs. Daily labs were monitored closely, and transfusions were only used when necessary. Medicine as well as other consulting services have made their input and have helped with our team approach and multidisciplinary care. PT milestones have been met and passed and they have made the recommendation of home with home care for this patient and treating providers agree with this care path. The patient will be discharged home with appropriate medications, instructions and follow-up information and in stable condition. Patient Condition at Discharge: Good Plan - Discharge Summary Discharge Rx Participant: No New Discharge Prescriptions: No Action Cetirizine HCl/Pseudoephedrine [Zyrtec-D Tablet] 1 each PO DAILY PRN PRN Reason: Allergy Symptoms Ibuprofen [Motrin] 600 mg PO Q6HR PRN #40 tab PRN Reason: Pain Tri Femynor Birthcontrol 1 tab PO QAM traMADol HCL 50 mg PO PRN PRN Reason: Pain Acetaminophen [Tylenol Extra Strength] 500 - 1,000 mg PO Q6H PRN PRN Reason: Pain Candesartan/Hydrochlorothiazid [Candesartan/Hydrochlorothiazid 16-12.5 mg] 1 each PO QAM Discharge Medication List Cetirizine HCl/Pseudoephedrine [Zyrtec-D Tablet] 1 each PO DAILY PRN 04/23/18 [History] Ibuprofen [Motrin] 600 mg PO Q6HR PRN #40 tab 04/26/18 [Rx] Acetaminophen [Tylenol Extra Strength] 500 - 1,000 mg PO Q6H PRN 03/07/22 [History] Candesartan/Hydrochlorothiazid [Candesartan/Hydrochlorothiazid 16-12.5 mg] 1 each PO QAM 03/07/22 [History] Tri Femynor Birthcontrol 1 tab PO QAM 03/07/22 [History] traMADol HCL 50 mg PO PRN 03/14/22 [History]
--- NOTE | 2022-03-16 13:59 | P.PN ---
Subjective Progress Note Date: 03/16/22 03/15/2022 This is a 46-year-old female with past medical history of hypertension, morbid obesity, BMI 40, anxiety, depression, former nicotine dependence, degenerative disc disease L5 to S1 with spondylolithiasis with bilateral lower extremity radiculopathy, status post transforaminal lumbar interbody fusion. Reports tuttle has been discontinued this morning. Moving all extremities, reports has not yet been out of bed. PT pending. Positive pain/ muscle spasms. Passing flatus. Afebrile, WBC 11.72. Renal function stable. Denies chest pain, palpitations or shortness of breath. Maintaining O2 sats in the high 90s on 2 L nasal cannula. 03/16/2022 ambulating with walker, participate with PT, tolerated exertion well. Pain better controlled. Denies any nausea vomiting or diarrhea. Denies any abdominal pain. Denies chest pain, palpitations or shortness of breath. Denies any fevers or chills. Anticipating discharge home today. Objective - Vital Signs Vital signs: Vital Signs Temp 97.6 F 03/16/22 03:54 Pulse 104 H 03/16/22 03:54 Resp 18 03/16/22 03:54 BP 115/77 03/16/22 03:54 Pulse Ox 96 03/16/22 03:54 FiO2 Intake & Output 03/15/22 03/16/22 03/16/22 18:59 06:59 18:59 Intake Total 550 Balance 550 Intake: Intake, IV Titration 50 Amount ceFAZolin 2 gm In Sodium 50 Chloride 0.9% 50 ml @ 100 mls/hr IVPB Q8HR [facility] Rx# :[id number] Oral 500 Other: Voiding Method Toilet # Voids 2 2 - Exam PHYSICAL EXAM: VITAL SIGNS: [As above] GENERAL: Sitting up in bed, no acute distress HEENT: Conjunctivae normal. eyes normal. MMM. NECK: No JVD. No thyroid enlargement. No LNs CARDIOVASCULAR: S1, S2 regular.No murmur RESPIRATION: Breath sounds diminished in the bases. No rhonchi or crackles. ABDOMEN: Soft, nondistended, nontender.No guarding. no masses palpable. Positive bowel sounds heard. LEGS: No edema. no swelling. PSYCHIATRY: Alert and oriented X3, mood and affect normal. NERVOUS SYSTEM: Cranial N 2-12 grossly normal. Strength and sensation grossly intact. Skin: Warm and dry, no rash. - Labs CBC & Chem 7: 03/15/22 03:27 03/15/22 03:27 Assessment and Plan Assessment: Degenerative disc disease L5 to S1 with spondylolithiasis with bilateral lower extremity radiculopathy, status post transforaminal lumbar interbody fusion L5- S1. Morbid obesity, BMI 40 Hypertension Anxiety, history of Depression, history of Former nicotine dependence Plan: Continue on current medication regime ,monitoring and symptomatic treatment. Discharge planning in progress as per primary.Aggressive pulmonary toileting with incentive spirometer reinforced. Pain management,DVT prophylaxis as per primary.Follow-up with PCP in one week. The impression and plan of care has been dictated as directed. : I performed a history and examination of this patient, discussed the same with the dictator. I agree with the dictator's note ,documented as a scribe. Any additional findings or plans will be noted.
== END 2022-03-16 13:29 | disposition home health service (06) | DRG 454 ==
LOC: OR 05:43 → 5NMEDONC 10:36 → OR 20:43 → 5NMEDONC 20:43 → OBSVTOIN 03-16 08:49
PROVIDERS: ADMIT Orthopaedic Surgery; ATTEND Orthopaedic Surgery
PROC: 0SG3071 Fusion of Lumbosacral Joint with Autologous Tissue Substitute, Posterior Approach, Posterior Column, Open Approach (ICD-10-PCS; 2022-03-14)
PROC: 01NB0ZZ Release Lumbar Nerve, Open Approach (ICD-10-PCS; 2022-03-14)
PROC: 01NR0ZZ Release Sacral Nerve, Open Approach (ICD-10-PCS; 2022-03-14)
PROC: 0SG30AJ Fusion of Lumbosacral Joint with Interbody Fusion Device, Posterior Approach, Anterior Column, Open Approach (ICD-10-PCS; principal; 2022-03-14 07:30)
DX: M43.17 Spondylolisthesis, lumbosacral region (principal); D62 Acute posthemorrhagic anemia; M48.56XA Collapsed vertebra, not elsewhere classified, lumbar region, initial encounter for fracture; Z68.41 Body mass index [BMI] 40.0-44.9, adult; I10 Essential (primary) hypertension; E66.01 Morbid (severe) obesity due to excess calories; F32.A Depression, unspecified; M24.28 Disorder of ligament, vertebrae; M48.07 Spinal stenosis, lumbosacral region; G47.9 Sleep disorder, unspecified; M51.27 Other intervertebral disc displacement, lumbosacral region; M51.17 Intervertebral disc disorders with radiculopathy, lumbosacral region; F41.9 Anxiety disorder, unspecified; G89.29 Other chronic pain; M51.16 Intervertebral disc disorders with radiculopathy, lumbar region; M51.37 Other intervertebral disc degeneration, lumbosacral region; D72.828 Other elevated white blood cell count; M62.838 Other muscle spasm; Z87.891 Personal history of nicotine dependence; Z91.048 Other nonmedicinal substance allergy status; Z79.3 Long term (current) use of hormonal contraceptives; Z79.899 Other long term (current) drug therapy; Z28.310 Unvaccinated for COVID-19
CPT/HCPCS: 72100; 72131; 80048; 81025; 85025; 86850; 86900; 86901; 87070